=== PATIENT | male | born 1965 | race Caucasian/White ===

== ENCOUNTER 2024-12-15 21:31 | Emergency (ER) | payer OTHER ==
[~2024-12-15] VITALS: Ht 160 cm; Wt 68.2 kg
[2024-12-15 21:41] VITALS: TEMP 98.9
[2024-12-15] MEDS: ACETAMINOPHEN 500 MG TABLET PO ONE (23:35)
[2024-12-15] MEDS: LIDOCAINE 1%/EPI 1:200,000/PF 10 ML VIAL SQ ONE (23:35)
[2024-12-15] MEDS: BACITRACIN 0.9 GM PACKET OINTMENT TP ONE (23:36)
[2024-12-15] MEDS: PERTUSS(ACELL),DIPH,TET/PF 0.5 ML SYRINGE [ADULT] IM. ONE (23:38)
[2024-12-16 00:31] VITALS: BP 129/71; PULSE 71; RESP 16; O2SAT 97
== END 2024-12-16 00:59 | disposition home or self-care (01) ==
LOC: EDBD 21:31 → EMS 21:31
DX: S01.81XA Laceration without foreign body of other part of head, initial encounter (principal); S62.102A Fracture of unspecified carpal bone, left wrist, initial encounter for closed fracture; W19.XXXA Unspecified fall, initial encounter; Y93.89 Activity, other specified; Y92.89 Other specified places as the place of occurrence of the external cause; Y99.8 Other external cause status
CPT/HCPCS: 99284; 70450; 73110; 70486; 72125; 12011; 29125; J3490